=== PATIENT | female | born 1950 | race Caucasian/White ===

== ENCOUNTER → 2020-09-18 13:02 | Outpatient (CLI) | payer MEDICARE, OTHER, SELFPAY ==
--- NOTE | 2020-09-18 | DI.MRI.S_ITS ---
PROCEDURE: MR CERVICAL SPINE WO CON INDICATIONS: Spondylolysis, cervical region TECHNIQUE: Noncontrast sagittal T1 spin echo and T2 fast spin echo, sagittal STIR, foraminal oblique sagittal T2 fast spin echo, and axial gradient echo or T2 fast spin echo through the cervical spine. COMPARISON: [facility], CR, XR CERVICAL SPINE 2 OR 3 VIEWS, 09/04/2020, 14:03. FINDINGS: Image quality: Excellent. Alignment and Curvature: There is loss of normal cervical lordosis. Mild, grade 1 retrolisthesis of C4 on C5 and C5 on C6. Bone Marrow: Marrow demonstrates normal overall signal. Moderate reactive signal within the endplates adjacent to the C2-C3, C3-C4, C4-C5, C5-C6, C6-C7, and C7-T1 intervertebral discs. Spinal Cord: There is a 5 mm diameter focus of elevated T2 signal intensity within the left hemicord at the C3-C4 disc space level. No cerebellar tonsillar herniation. Paraspinous Soft Tissues: No paravertebral masses. Prevertebral soft tissues are normal in thickness. C2-C3: Moderate disc height loss and desiccation. Mild diffuse disc bulge with superimposed left paracentral protrusion. Congenital canal stenosis. Moderate left and mild right facet and uncovertebral hypertrophy. Moderate canal stenosis. Severe left and mild right foraminal stenosis. Left C3 nerve root compression. C3-C4: Congenital canal stenosis. Severe disc height loss and desiccation. Moderate diffuse disc bulge/osteophyte with superimposed left paracentral protrusion/osteophyte. Moderate left greater than right facet and uncovertebral hypertrophy. Severe canal stenosis. Moderate left cord flattening. Severe left and moderate right foraminal stenosis. Left C4 nerve root compression. C4-C5: Congenital canal stenosis. Moderate disc height loss and desiccation. Mild diffuse disc bulge with superimposed small central protrusion. Moderate left and mild right facet and uncovertebral hypertrophy. Severe canal stenosis. Mild cord flattening. Severe left and moderate right foraminal stenosis. Left C5 nerve root compression. C5-C6: Congenital canal stenosis. Moderate disc height loss and desiccation. Mild diffuse disc bulge with superimposed left paracentral protrusion. Moderate facet and uncovertebral hypertrophy bilaterally. Severe canal stenosis. Mild left cord flattening. Severe right greater than left foraminal stenosis with bilateral C6 nerve root compression. C6-C7: Congenital canal stenosis. Moderate disc height loss and desiccation. Mild diffuse disc bulge. Moderate facet and uncovertebral hypertrophy bilaterally. Moderate to severe canal stenosis with mild cord flattening. Moderate to severe bilateral foraminal stenosis with mild C7 nerve root compression. C7-T1: Congenital canal stenosis. Moderate disc height loss and desiccation. Mild diffuse disc bulge. Moderate facet and uncovertebral hypertrophy bilaterally. Mild canal stenosis. Moderate left and severe right foraminal stenosis. Right C8 nerve root compression. IMPRESSION: 1. Diffuse congenital canal stenosis with superimposed disc and facet disease, as well as uncovertebral hypertrophy. 2. Multilevel canal stenoses, worst at C3-C4, C4-C5, C5-C6, and C6-C7 where there is associated cord flattening. 3. Multilevel foraminal stenoses, worst at C2-C3, C3-C4, C4-C5, C5-C6, C6-C7, and C7-T1 where there is associated intraforaminal nerve root compression. Recommend correlation with clinical symptoms to ascertain relevance of these findings. 4. Focal region of upper cervical cord signal abnormality, consistent with focal region of gliosis/cord injury. Dictated by: Shalonda Coughlin M.D. on 09/18/2020 at 15:06 Approved by: Shalonda Coughlin M.D. on 09/18/2020 at 15:11
== END ==
PROVIDERS: PCP Registered Nurse; Referring Provider Orthopaedic Surgery Orthopaedic Surgery of the Spine; Visit Provider Orthopaedic Surgery Orthopaedic Surgery of the Spine
DX: M43.02 Spondylolysis, cervical region (principal)
CPT/HCPCS: 72141

== ENCOUNTER → 2020-10-30 10:52 | Outpatient (CLI) | payer MEDICARE, OTHER, SELFPAY ==
--- NOTE | 2020-10-30 | DI.CT.S_ITS ---
PROCEDURE: CT CERVICAL SPINE WO CON INDICATIONS: spinal stenosis TECHNIQUE: Noncontrast 3 mm thick sections acquired from the skull base to the T4 level. Sagittal and coronal reformats were then constructed. For radiation dose reduction, the following was used: automated exposure control, adjustment of mA and/or kV according to patient size. COMPARISON: [facility], MR, MR CERVICAL SPINE WO CON, 09/18/2020, 13:24. [facility], CR, XR CERVICAL SPINE 2 OR 3 VIEWS, 09/04/2020, 14:03. FINDINGS: Image quality: Excellent. Bones: No fractures or dislocations. Visualized superior ribs are intact. Reversal of the normal cervical lordosis is seen, with the apex at the C3-C4 level. There is minimal retrolisthesis seen at C3-C4 and C5-C6. There is moderate disc space narrowing seen at L2-L3. Bridging anterior osteophytes are seen at this level. At C3-C4, there is moderate to severe loss of disc height. Endplate vacuum prominent bridging anterior osteophytes are seen. Uncovertebral joint hypertrophy is seen at this level. Posteriorly projected endplate osteophytes are seen. There is at least moderate right-sided and moderate to severe left-sided neural foraminal narrowing seen. Moderate to severe central canal narrowing is seen. At C4-C5, there is at least moderate loss of disc height. Prominent bridging anterior osteophytes are seen. Bridging posteriorly directed endplate osteophytes are also seen. At least moderate disc osteophyte complex is seen. There is moderate to severe left-sided and at least moderate right-sided neural foraminal narrowing seen. Moderate to severe central canal narrowing can be seen at this level. At C5-C6, at least moderate loss of disc height can be seen. Moderate disc osteophyte complex is seen, which is eccentric to the right. Uncovertebral joint hypertrophy is seen at this level. There is a central/left disc osteophyte protrusion seen. Mild to moderate facet hypertrophy is seen. There is moderate to severe bilateral neural foraminal narrowing seen. At least moderate central canal narrowing is seen. At C6-C7, there is at least moderate loss of disc height seen. Moderate to prominent disc osteophyte complex is seen. Bridging anterior osteophytes can be seen. Uncovertebral joint hypertrophy is seen at this level. Mild to moderate facet hypertrophy is seen. There is moderate to severe bilateral neural foraminal narrowing seen. There is a central/right disc osteophyte protrusion seen. At least moderate central canal narrowing is seen. At C7-T1, there is at least moderate loss of disc height at this level. At least moderate disc osteophyte complex is seen. There is a central/right disc osteophyte protrusion seen. Endplate irregularity and sclerosis can be seen. Mild to moderate facet hypertrophy is seen. Moderate to severe bilateral neural foraminal narrowing can be seen. Moderate central canal narrowing is seen. Soft tissues: Prevertebral soft tissues are normal in thickness. No paravertebral hematomas. No apical pneumothoraces. IMPRESSION: Multiple levels of prominent cervical spine degenerative changes are seen, which are overall better depicted on the recent prior cervical spine MRI examination. Dictated by: Ayden Estrada M.D. on 10/30/2020 at 12:23 Approved by: Ayden Estrada M.D. on 10/30/2020 at 12:28
== END ==
PROVIDERS: PCP Registered Nurse; Referring Provider Nurse Practitioner Family; Visit Provider Nurse Practitioner Family
DX: M48.02 Spinal stenosis, cervical region (principal); M47.812 Spondylosis without myelopathy or radiculopathy, cervical region
CPT/HCPCS: 72125

== ENCOUNTER → 2020-11-13 11:39 | Outpatient (CLI) | payer MEDICARE, OTHER, SELFPAY ==
--- NOTE | 2020-11-13 11:47 | DI.RAD.S_ITS ---
PROCEDURE: XR CERVICAL SPINE 4V OR 5V INDICATIONS: CERVICAL SPINE STENOSIS TECHNIQUE: 7 views of the cervical spine were acquired. COMPARISON: None. FINDINGS: Bones: No fractures or dislocations to the T1 level. No suspicious bony lesions. Loss of lordosis which could be related to muscle spasm, rigidity or simply positional. Severe multilevel disc degeneration. Moderate multilevel mid and lower cervical spine facet joint arthropathy and uncovertebral hypertrophy. There is limited range of motion between flexion and extension, with preserved normal bony alignment. Soft tissues: Prevertebral soft tissues are normal in thickness. IMPRESSION: Limited range of motion and severe multilevel spondylosis. Dictated by: Jose Carrington RR Interpreted: Alton Rod MD on 11/13/2020 at 12:34 Transcribed by: JOSE on 11/13/2020 at 12:35 Approved by: Alton Rod M.D. on 11/13/2020 at 14:46
== END ==
PROVIDERS: PCP Registered Nurse; Referring Provider Nurse Practitioner Family; Visit Provider Nurse Practitioner Family
DX: M48.02 Spinal stenosis, cervical region (principal); M47.812 Spondylosis without myelopathy or radiculopathy, cervical region
CPT/HCPCS: 72050

== ENCOUNTER → 2021-05-08 10:38 | Outpatient (CLI) | payer MEDICARE, OTHER, SELFPAY ==
--- NOTE | 2021-05-08 | DI.RAD.S_ITS ---
PROCEDURE: XR CERVICAL SPINE 2V OR 3V INDICATIONS: Arthrodesis status TECHNIQUE: Three view(s) of the cervical spine were acquired. COMPARISON: [facility], , XR CERVICAL SPINE 4V OR 5V, 11/13/2020, 11:44. FINDINGS: Bones: No fractures or dislocations to the T1 level. Posterior fusion hardware in the posterior elements from C3 through C7 are present and appear intact. There is straightening of the normal cervical lordosis. Multilevel disc degeneration. Prominent anterior osteophyte at C3-4 and moderate osteophytes at other cervical levels. The lateral masses of C1 appear intact on the odontoid view. No suspicious bony lesions. Soft tissues: No prevertebral soft tissue swelling. IMPRESSION: 1. Expected appearance post cervical fusion. 2. Redemonstrated are degenerative changes without progression. Dictated by: Lily Gooden M.D. on 05/08/2021 at 11:37 Approved by: Lily Gooden M.D. on 05/08/2021 at 11:41
== END ==
PROVIDERS: PCP Registered Nurse; Referring Provider Neurological Surgery; Visit Provider Nurse Practitioner Family
DX: Z98.1 Arthrodesis status (principal); M47.812 Spondylosis without myelopathy or radiculopathy, cervical region
CPT/HCPCS: 72040

== ENCOUNTER → 2021-06-16 09:55 | Outpatient (CLI) | payer MEDICARE, OTHER, SELFPAY ==
--- NOTE | 2021-06-16 | DI.RAD.S_ITS ---
PROCEDURE: XR CERVICAL SPINE 4V OR 5V INDICATIONS: Arthrodesis status TECHNIQUE: 5 views of the cervical spine were acquired. COMPARISON: , CR, XR CERVICAL SPINE 2V OR 3V, 05/08/2021, 10:39. FINDINGS: Bones: Expected appearance of posterior lateral hayden and pedicle screw fixation from C3 through C7 with pedicle screws in place at each level. No evidence of hardware failure or loosening. No fractures or dislocations to the T1 level. No suspicious bony lesions. There is expected diminished range of motion between flexion and extension, with preserved normal bony alignment. Soft tissues: Prevertebral soft tissues are normal in thickness. IMPRESSION: Expected appearance of posterior cervical fusion hardware. Dictated by: Faraz Whittaker M.D. on 06/16/2021 at 11:46 Approved by: Faraz Whittaker M.D. on 06/16/2021 at 11:48
== END ==
PROVIDERS: PCP Registered Nurse; Referring Provider Neurological Surgery; Visit Provider Neurological Surgery
DX: Z98.1 Arthrodesis status (principal); Z09 Encounter for follow-up examination after completed treatment for conditions other than malignant neoplasm
CPT/HCPCS: 72050